=== PATIENT | male | born 1950 | race African-American/Black ===

== ENCOUNTER 2019-06-30 22:14 | Emergency (ER) | payer MEDICARE ==
[~2019-06-30] VITALS: Ht 172.7 cm; Wt 87.0 kg
[2019-06-30] MEDS ORDERED: SODIUM CHLORIDE 0.9% 1,000 ML IV ONE ×2 (23:14)
[2019-06-30 23:31] LABS: BG BASE EXCESS 2.8 mmol/L (-2.0-2.0); BG CARBOXYHEMOGLOBIN 4.9 % (0.5-1.5); BG DEOXYHEMOGLOBIN 5.8 % (0.0-5.0); BG FRACTION INSPIRED OXYGEN 21; BG HCO3 ACT 26.4 mmol/L (22.0-26.0); BG METHEMOGLOBIN 0.3 % (0.0-1.5); BG OXYGEN SATURATION 93.9 % (92.0-98.5); BG PCO2 37.3 mmHg (35.0-45.0); BG PH 7.467 (7.350-7.450); BG SAMPLE SITE RIGHT RADIAL; BG TOTAL HEMOGLOBIN 16.9 g/dL (12.0-18.0); BG VENT MODE ROOM AIR
[2019-06-30 23:47] LABS: CHLORIDE 98 mEq/L (98-107)
[2019-06-30 23:52] LABS: ETHANOL BLOOD < 10 mg/dL; HEMATOCRIT. 48.8 % (42.0-52.0); HEMOGLOBIN. 16.8 g/dL (14.0-18.0); MEAN CORPUSCULAR HEMOGLOBIN 32.5 pg (28.0-32.0); MEAN CORPUSCULAR VOLUME 94.6 fL (80.0-94.0); MEAN PLATELET VOLUME 6.5 fl (7.4-10.4); PLATELET 289 x1000/uL (130-400); RED BLOOD CELL COUNT 5.16 mill/uL (4.7-6.1); RED CELL DISTRIBUTION WIDTH 15.2 % (11.6-14.6)
[2019-06-30 23:59] LABS: BETA HYDROXYBUTYRATE 0.4 mMol/L (0.0-0.3)
[2019-07-01 01:58] LABS: PLATELET ESTIMATE NORMAL
[2019-07-01] MEDS ORDERED: ONDANSETRON HCL 4MG TABLET PO ONE (08:30)
[2019-07-01 10:55] VITALS: BP 135/77
== END 2019-07-01 11:05 | disposition home or self-care (01) ==
LOC: ER 22:14
DX: E11.65 Type 2 diabetes mellitus with hyperglycemia (principal); E86.0 Dehydration; I10 Essential (primary) hypertension; E78.00 Pure hypercholesterolemia, unspecified; Z89.512 Acquired absence of left leg below knee
CPT/HCPCS: 36415; 36600; 70450; 71045; 80053; 80320; 82010; 82140; 82375; 82805; 82962; 83605; 83690; 84484; 85025; 93005; 96360; 99285; J7030; Q0162; G0480

== ENCOUNTER 2021-08-15 17:44 | Inpatient (IN) | payer MEDICARE ==
[~2021-08-15] VITALS: Ht 172.7 cm; Wt 63.5 kg
[2021-08-15] MEDS ORDERED: ONDANSETRON HCL 4MG/2ML INJ IV STA (18:08)
[2021-08-15] MEDS ORDERED: MORPHINE SULFATE 4 MG/ML CPJ (NOT FOR IM USE) IV STA (18:08)
[2021-08-15] MEDS ORDERED: VANCOMYCIN 1G PREMIX 200 ML IV ONE (18:15)
[2021-08-15] MEDS ORDERED: PIPERACILLIN/TAZ 3.375G PREMIX 50 ML IV ONE (18:15)
[2021-08-15] MEDS ORDERED: SODIUM CHLORIDE 0.9% 1000ML BAG (SEPSIS BOLUS) IV ONE (18:15)
[2021-08-15] MEDS ORDERED: MORPHINE SULFATE 4 MG/ML CPJ (NOT FOR IM USE) IV NR (21:30)
[2021-08-15] MEDS ORDERED: ONDANSETRON HCL 4MG/2ML INJ IV NR (21:45)
[2021-08-15] MEDS ORDERED: PIPERACILLIN/TAZ 3.375G PREMIX 50 ML IV NR (21:45)
[2021-08-15] MEDS ORDERED: VANCOMYCIN 1G PREMIX 200 ML IV NR (21:45)
[2021-08-15 22:05] LABS: BASOPHILS % 0.3 % (0.0-2.0); EOSINOPHILS % 0.2 % (0.0-5.0); HEMATOCRIT. 45.2 % (42.0-52.0); HEMOGLOBIN. 15.1 g/dL (14.0-18.0); LYMPHOCYTES % 12.2 % (20.0-50.0); MEAN CORPUSCULAR HEMOGLOBIN 30.6 pg (28.0-32.0); MEAN CORPUSCULAR VOLUME 91.6 fL (80.0-94.0); MEAN PLATELET VOLUME 6.7 fl (7.4-10.4); MONOCYTES % 5.6 % (2.0-8.0); NEUTROPHILS % 81.7 % (40.0-76.0); PLATELET 265 x1000/uL (130-400); RED BLOOD CELL COUNT 4.94 mill/uL (4.7-6.1); RED CELL DISTRIBUTION WIDTH 18.4 % (11.6-14.6)
[2021-08-15 22:10] LABS: CHLORIDE 95 mEq/L (98-107)
[2021-08-15 22:12] LABS: INR 1.1; PROTHROMBIN TIME 11.7 sec (9.6-11.0)
[2021-08-16] MEDS ORDERED: ACETAMINOPHEN 325MG TABLET PO PRN (00:15)
[2021-08-16] MEDS ORDERED: DOCUSATE SODIUM 100MG CAPSULE PO PRN (00:15)
[2021-08-16] MEDS ORDERED: MAGNESIUM/ALUMINUM HYDROXIDE/SIMETHICONE 30ML UDC PO PRN (00:15)
[2021-08-16] MEDS ORDERED: ONDANSETRON HCL 4MG/2ML INJ IV PRN (00:15)
[2021-08-16] MEDS ORDERED: ENOXAPARIN 40MG/0.4ML SYR SUBCUT SCH (00:15)
[2021-08-16] MEDS ORDERED: CLONIDINE 0.1MG TABLET PO PRN (00:15)
[2021-08-16] MEDS ORDERED: NALOXONE HCL 0.4 MG/ML 1ML VIAL IV PRN (00:30)
[2021-08-16 02:30] VITALS: BP 138/82
[2021-08-16 04:00] VITALS: BP 133/70
[2021-08-16] MEDS ORDERED: METF-416 MT (04:39)
[2021-08-16] MEDS ORDERED: TRAM50TA3 PO (04:39)
[2021-08-16] MEDS ORDERED: CARV40CP7 MT (04:39)
[2021-08-16] MEDS ORDERED: GABA-532 MT (04:39)
[2021-08-16] MEDS ORDERED: GABA-532 PO (04:39)
[2021-08-16] MEDS ORDERED: TRAM50TA3 MT (04:39)
[2021-08-16] MEDS ORDERED: CEFD300C3 MT (04:39)
[2021-08-16] MEDS ORDERED: CEFD300C3 PO (04:39)
[2021-08-16] MEDS ORDERED: QUIN10TA28 MT (04:46)
[2021-08-16] MEDS ORDERED: *PATIENT'S OWN MEDICATION STORAGE XX SCH (05:00)
[2021-08-16] MEDS ORDERED: PIPERACILLIN/TAZ 3.375G PREMIX 50 ML IV SCH (06:00)
[2021-08-16 07:32] LABS: BASOPHILS % 0.3 % (0.0-2.0); EOSINOPHILS % 0.3 % (0.0-5.0); HEMATOCRIT. 37.9 % (42.0-52.0); HEMOGLOBIN. 12.6 g/dL (14.0-18.0); LYMPHOCYTES % 7.4 % (20.0-50.0); MEAN CORPUSCULAR HEMOGLOBIN 30.2 pg (28.0-32.0); MEAN PLATELET VOLUME 6.8 fl (7.4-10.4); MONOCYTES % 5.5 % (2.0-8.0); NEUTROPHILS % 86.5 % (40.0-76.0); PLATELET 245 x1000/uL (130-400); RED BLOOD CELL COUNT 4.16 mill/uL (4.7-6.1); RED CELL DISTRIBUTION WIDTH 18.5 % (11.6-14.6)
[2021-08-16 07:41] LABS: CHLORIDE 100 mEq/L (98-107)
[2021-08-16 08:00] VITALS: BP 125/72
[2021-08-16 08:05] LABS: HDL CHOLESTEROL 26 mg/dL (40-59); LDL CHOLESTEROL 74 mg/dL (5-100)
[2021-08-16] MEDS: PIPERACILLIN/TAZOBACTAM 3.375 G in DEXTROSE 5% WATER 50 ML IV SCH ×3 (09:13→22:43)
[2021-08-16] MEDS: ENOXAPARIN 40MG/0.4ML SYR SUBCUT SCH (09:14)
[2021-08-16] MEDS ORDERED: POTASSIUM CHLORIDE 20MEQ/PACKET PO NR (09:15)
[2021-08-16] MEDS: VANCOMYCIN 750 MG in DEXT 5% WATER 250 ML IV SCH ×2 (11:22→22:43)
[2021-08-16] MEDS ORDERED: DEXTROSE 50% WATER 50ML SYRINGE IV PRN (11:45)
[2021-08-16 12:00] VITALS: BP 133/77
[2021-08-16] MEDS ORDERED: PNEUMOCOCCAL 23-VAL P-SAC VAC 0.5 ML IM ONE (12:00)
[2021-08-16] MEDS ORDERED: INFLUENZA VACCINE 05/PF 0.5 ML SYRINGE IM ONE (12:00)
[2021-08-16] MEDS ORDERED: VANCOMYCIN 1GM PMX (XELLIA) 200 ML IV SCH (12:00)
[2021-08-16] MEDS: BLOOD SUGAR DIAGNOSTIC STRIP TEST SCH ×3 (12:38→21:21)
[2021-08-16] MEDS: GABAPENTIN 300MG CAPSULE PO SCH ×2 (12:50→17:29)
[2021-08-16] MEDS: HYDROCODONE/ACETAMINOPHEN 5/325MG TABLET PO PRN (12:51)
[2021-08-16] MEDS: INSULIN LISPRO 100 UNITS/ML SUBCUT SCH ×3 (12:56→21:00)
[2021-08-16 16:00] VITALS: BP 122/68
[2021-08-16] MEDS: METFORMIN HCL 500MG TABLET PO SCH (17:30)
[2021-08-16 20:00] VITALS: BP 124/78
[2021-08-17] VITALS: BP 118/63
[2021-08-17 04:00] VITALS: BP 122/60
[2021-08-17] MEDS: PIPERACILLIN/TAZOBACTAM 3.375 G in DEXTROSE 5% WATER 50 ML IV SCH ×3 (05:27→21:50)
[2021-08-17] MEDS: BLOOD SUGAR DIAGNOSTIC STRIP TEST SCH ×4 (07:20→21:51)
[2021-08-17 08:00] VITALS: BP 133/73
[2021-08-17] MEDS: METFORMIN HCL 500MG TABLET PO SCH (08:47)
[2021-08-17] MEDS: GABAPENTIN 300MG CAPSULE PO SCH ×3 (08:47→17:56)
[2021-08-17] MEDS: ENOXAPARIN 40MG/0.4ML SYR SUBCUT SCH (08:48)
[2021-08-17] MEDS: LISINOPRIL 10MG TABLET PO SCH (08:48)
[2021-08-17] MEDS: INSULIN LISPRO 100 UNITS/ML SUBCUT SCH ×4 (08:53→21:00)
[2021-08-17 11:14] LABS: CHLORIDE 100 mEq/L (98-107)
[2021-08-17] MEDS: VANCOMYCIN 750 MG in DEXT 5% WATER 250 ML IV SCH (11:50)
[2021-08-17 12:00] VITALS: BP 127/77
[2021-08-17] MEDS: HYDROCODONE/ACETAMINOPHEN 5/325MG TABLET PO PRN (13:39)
[2021-08-17] MEDS ORDERED: MORPHINE SULFATE 2 MG/ML CPJ (NOT FOR IM USE) IV PRN (15:30)
[2021-08-17 16:00] VITALS: BP 134/75
[2021-08-17] MEDS: HYDROCODONE/ACETAMINOPHEN 10/325MG TABLET PO PRN ×2 (16:01→22:04)
[2021-08-17 20:00] VITALS: BP 130/64
[2021-08-17] MEDS: VANCOMYCIN 1GM PMX (XELLIA) 200 ML IV SCH (21:50)
[2021-08-17] MEDS: INSULIN GLARGINE 100 UNITS/ML SUBCUT SCH (21:52)
[2021-08-18] VITALS: BP 136/68
[2021-08-18 04:00] VITALS: BP 136/68
[2021-08-18] MEDS: HYDROCODONE/ACETAMINOPHEN 10/325MG TABLET PO PRN ×3 (04:57→21:09)
[2021-08-18] MEDS: PIPERACILLIN/TAZOBACTAM 3.375 G in DEXTROSE 5% WATER 50 ML IV SCH ×3 (05:30→21:18)
[2021-08-18] MEDS: BLOOD SUGAR DIAGNOSTIC STRIP TEST SCH ×4 (06:25→20:59)
[2021-08-18 07:23] LABS: BASOPHILS % 0.5 % (0.0-2.0); EOSINOPHILS % 1.4 % (0.0-5.0); HEMATOCRIT. 39.9 % (42.0-52.0); HEMOGLOBIN. 13.4 g/dL (14.0-18.0); LYMPHOCYTES % 12.4 % (20.0-50.0); MEAN CORPUSCULAR HEMOGLOBIN 30.6 pg (28.0-32.0); MEAN CORPUSCULAR VOLUME 91.3 fL (80.0-94.0); MEAN PLATELET VOLUME 6.8 fl (7.4-10.4); MONOCYTES % 5.2 % (2.0-8.0); NEUTROPHILS % 80.5 % (40.0-76.0); PLATELET 250 x1000/uL (130-400); RED BLOOD CELL COUNT 4.37 mill/uL (4.7-6.1); RED CELL DISTRIBUTION WIDTH 18.1 % (11.6-14.6)
[2021-08-18 07:53] LABS: CHLORIDE 101 mEq/L (98-107)
[2021-08-18 08:00] VITALS: BP 138/62
[2021-08-18] MEDS: LISINOPRIL 10MG TABLET PO SCH (08:56)
[2021-08-18] MEDS: GABAPENTIN 300MG CAPSULE PO SCH ×3 (08:57→16:36)
[2021-08-18] MEDS: VANCOMYCIN 1GM PMX (XELLIA) 200 ML IV SCH ×2 (08:57→21:08)
[2021-08-18] MEDS: INSULIN LISPRO 100 UNITS/ML SUBCUT SCH ×4 (08:58→21:21)
[2021-08-18] MEDS: ENOXAPARIN 40MG/0.4ML SYR SUBCUT SCH (08:58)
[2021-08-18] MEDS ORDERED: POTASSIUM CHLORIDE 20MEQ TABLET SR PO NR (09:30)
[2021-08-18 12:00] VITALS: BP 112/68
[2021-08-18 16:00] VITALS: BP 96/55
[2021-08-18] MEDS: HYDROCODONE/ACETAMINOPHEN 5/325MG TABLET PO PRN (16:44)
[2021-08-18 20:00] VITALS: BP 114/69
[2021-08-18] MEDS: INSULIN GLARGINE 100 UNITS/ML SUBCUT SCH (21:17)
[2021-08-19] VITALS: BP_SYST 49
[2021-08-19] MEDS: PIPERACILLIN/TAZOBACTAM 3.375 G in DEXTROSE 5% WATER 50 ML IV SCH ×3 (05:23→22:04)
[2021-08-19] MEDS: BLOOD SUGAR DIAGNOSTIC STRIP TEST SCH ×4 (06:24→21:57)
[2021-08-19 08:00] VITALS: BP 118/68
[2021-08-19 08:36] LABS: BASOPHILS % 0.3 % (0.0-2.0); HEMATOCRIT. 38.1 % (42.0-52.0); HEMOGLOBIN. 12.6 g/dL (14.0-18.0); LYMPHOCYTES % 8.4 % (20.0-50.0); MEAN CORPUSCULAR HEMOGLOBIN 30.2 pg (28.0-32.0); MEAN CORPUSCULAR VOLUME 91.4 fL (80.0-94.0); MEAN PLATELET VOLUME 6.9 fl (7.4-10.4); MONOCYTES % 5.5 % (2.0-8.0); NEUTROPHILS % 84.8 % (40.0-76.0); PLATELET 237 x1000/uL (130-400); RED BLOOD CELL COUNT 4.17 mill/uL (4.7-6.1); RED CELL DISTRIBUTION WIDTH 17.9 % (11.6-14.6)
[2021-08-19 08:47] LABS: CHLORIDE 102 mEq/L (98-107)
[2021-08-19] MEDS: ENOXAPARIN 40MG/0.4ML SYR SUBCUT SCH (09:00)
[2021-08-19] MEDS: LISINOPRIL 10MG TABLET PO SCH (09:19)
[2021-08-19] MEDS: GABAPENTIN 300MG CAPSULE PO SCH ×3 (09:30→17:42)
[2021-08-19] MEDS: HYDROCODONE/ACETAMINOPHEN 10/325MG TABLET PO PRN ×3 (09:31→21:52)
[2021-08-19] MEDS: INSULIN LISPRO 100 UNITS/ML SUBCUT SCH ×4 (09:38→22:08)
[2021-08-19] MEDS: VANCOMYCIN 1GM PMX (XELLIA) 200 ML IV SCH ×2 (09:41→21:49)
[2021-08-19 12:00] VITALS: BP 122/70
[2021-08-19 16:00] VITALS: BP 125/72
[2021-08-19 20:00] VITALS: BP 117/60
[2021-08-19 21:17] VITALS: BP 117/60
[2021-08-19] MEDS: INSULIN GLARGINE 100 UNITS/ML SUBCUT SCH (22:07)
[2021-08-20 00:34] VITALS: BP 113/65
[2021-08-20 04:00] VITALS: BP 125/71
[2021-08-20] MEDS: PIPERACILLIN/TAZOBACTAM 3.375 G in DEXTROSE 5% WATER 50 ML IV SCH ×3 (05:47→21:37)
[2021-08-20] MEDS: BLOOD SUGAR DIAGNOSTIC STRIP TEST SCH ×4 (06:33→21:00)
[2021-08-20 08:00] VITALS: BP 133/78
[2021-08-20] MEDS: LISINOPRIL 10MG TABLET PO SCH (08:51)
[2021-08-20] MEDS: GABAPENTIN 300MG CAPSULE PO SCH ×3 (08:51→18:11)
[2021-08-20] MEDS: HYDROCODONE/ACETAMINOPHEN 10/325MG TABLET PO PRN ×2 (08:52→15:59)
[2021-08-20] MEDS: INSULIN LISPRO 100 UNITS/ML SUBCUT SCH ×4 (08:57→22:48)
[2021-08-20] MEDS: ENOXAPARIN 40MG/0.4ML SYR SUBCUT SCH (08:58)
[2021-08-20] MEDS: VANCOMYCIN 1GM PMX (XELLIA) 200 ML IV SCH ×2 (10:17→21:36)
[2021-08-20 12:01] VITALS: BP 113/66
[2021-08-20 16:00] VITALS: BP 114/69
[2021-08-20 20:00] VITALS: BP 122/71
[2021-08-20] MEDS: INSULIN GLARGINE 100 UNITS/ML SUBCUT SCH (21:48)
[2021-08-21 00:47] VITALS: BP 110/58
[2021-08-21] MEDS: HYDROCODONE/ACETAMINOPHEN 10/325MG TABLET PO PRN ×3 (03:58→20:52)
[2021-08-21 04:54] VITALS: BP 120/71
[2021-08-21] MEDS: PIPERACILLIN/TAZOBACTAM 3.375 G in DEXTROSE 5% WATER 50 ML IV SCH ×2 (05:28→13:31)
[2021-08-21] MEDS: BLOOD SUGAR DIAGNOSTIC STRIP TEST SCH ×3 (05:29→17:20)
[2021-08-21 06:46] LABS: BASOPHILS % 0.3 % (0.0-2.0); EOSINOPHILS % 1.8 % (0.0-5.0); HEMATOCRIT. 36.7 % (42.0-52.0); LYMPHOCYTES % 11.9 % (20.0-50.0); MEAN CORPUSCULAR HEMOGLOBIN 30.2 pg (28.0-32.0); MEAN CORPUSCULAR VOLUME 92.1 fL (80.0-94.0); MEAN PLATELET VOLUME 6.9 fl (7.4-10.4); MONOCYTES % 7.1 % (2.0-8.0); NEUTROPHILS % 78.9 % (40.0-76.0); PLATELET 265 x1000/uL (130-400); RED BLOOD CELL COUNT 3.98 mill/uL (4.7-6.1); RED CELL DISTRIBUTION WIDTH 18.2 % (11.6-14.6)
[2021-08-21] MEDS: INSULIN LISPRO 100 UNITS/ML SUBCUT SCH ×3 (07:50→17:50)
[2021-08-21 08:00] VITALS: BP 100/59
[2021-08-21] MEDS: LISINOPRIL 10MG TABLET PO SCH (09:00)
[2021-08-21] MEDS: GABAPENTIN 300MG CAPSULE PO SCH ×3 (09:00→18:22)
[2021-08-21] MEDS: ENOXAPARIN 40MG/0.4ML SYR SUBCUT SCH (09:00)
[2021-08-21 09:01] LABS: CHLORIDE 103 mEq/L (98-107)
[2021-08-21] MEDS ORDERED: VANCOMYCIN HCL 1 GM/VIAL ONE (09:32)
[2021-08-21] MEDS ORDERED: POLYMYXIN B SULFATE 500000 UNITS/VIAL ONE (09:32)
[2021-08-21] MEDS ORDERED: BACITRACIN 15GM TUBE TOP ONE (09:33)
[2021-08-21] MEDS ORDERED: GENTAMICIN SULF 40MG/ML 2ML VIAL ONE (09:34)
[2021-08-21] MEDS ORDERED: LIDOCAINE HCL/EPINEPHRINE 1%-EPI 1:100,000 20 ML VIAL ONE (09:35)
[2021-08-21] MEDS: MORPHINE SULFATE 2 MG/ML CPJ (NOT FOR IM USE) IV PRN ×2 (09:47→15:17)
[2021-08-21 12:00] VITALS: BP 119/59
[2021-08-21] MEDS ORDERED: VANCOMYCIN 750 MG in DEXT 5% WATER 250 ML IV SCH (12:00)
[2021-08-21 16:00] VITALS: BP 116/69
[2021-08-21] MEDS ORDERED: NALOXONE HCL 0.4MG/ML VIAL IV PRN (16:15)
[2021-08-21 20:52] VITALS: BP 111/62
[2021-08-21] MEDS ORDERED: CEFEPIME 2,000 MG in DEXT 5% WATER 100 ML IV SCH (22:00)
== END 2021-08-21 22:15 | disposition short-term general hospital (02) | DRG 564 ==
LOC: ER 17:44 → 6EST 23:29 → ENRESERV 08-16 00:23 → 6EST 08-16 02:59
PROVIDERS: ADMIT Internal Medicine; ATTEND Internal Medicine
DX: T87.44 Infection of amputation stump, left lower extremity (principal); A41.9 Sepsis, unspecified organism; E11.52 Type 2 diabetes mellitus with diabetic peripheral angiopathy with gangrene; M86.8X6 Other osteomyelitis, lower leg; I10 Essential (primary) hypertension; J44.9 Chronic obstructive pulmonary disease, unspecified; Y83.5 Amputation of limb(s) as the cause of abnormal reaction of the patient, or of later complication, without mention of misadventure at the time of the procedure; E78.00 Pure hypercholesterolemia, unspecified; Z20.822 Contact with and (suspected) exposure to COVID-19; M24.562 Contracture, left knee; E11.69 Type 2 diabetes mellitus with other specified complication; Z79.4 Long term (current) use of insulin; Z79.84 Long term (current) use of oral hypoglycemic drugs; Z82.49 Family history of ischemic heart disease and other diseases of the circulatory system; Z79.899 Other long term (current) drug therapy; Z99.3 Dependence on wheelchair; Z88.8 Allergy status to other drugs, medicaments and biological substances; Z91.018 Allergy to other foods; Z89.512 Acquired absence of left leg below knee
CPT/HCPCS: 36415; 71045; 73590; 73721; 80048; 80053; 80061; 80202; 82962; 83036; 83605; 84145; 84443; 85025; 85651; 86140; 86850; 86900; 87070; 87077; 87186; 87426; 93005; 93922; 99285; J0692; J1580; J1650; J1815; J2270; J2405; J2543; J3370; J3490; J7030; J7060